=== PATIENT | female | born 1970 | race Caucasian/White ===

== ENCOUNTER 2020-08-21 06:20 | Emergency (ER) | payer OTHER, MEDICARE ==
[~2020-08-21] VITALS: Ht 144.8 cm; Wt 45.4 kg
[2020-08-21 06:50] VITALS: BP 133/87
[2020-08-21] MEDS ORDERED: MOBIC7.5 MG PO (10:22)
[2020-08-21] MEDS ORDERED: TOPAMAX50 MG PO (10:22)
[2020-08-21] MEDS ORDERED: KEPPRA XR500 MG PO (10:23)
[2020-08-21] MEDS ORDERED: LYRICA 75 MG CA75 MG PO (10:23)
[2020-08-21] MEDS ORDERED: FLEXERIL PO (10:24)
[2020-08-21] MEDS ORDERED: PROLIA60 MG/1 ML SUBQ (10:24)
[2020-08-21] MEDS ORDERED: LEVOTHYROXINE25 MC1 PO (10:24)
[2020-08-21] MEDS ORDERED: TRAZODONE HCL50 MG PO (10:25)
[2020-08-21] MEDS ORDERED: CEPHALEXIN500 MG PO (10:25)
[2020-08-21] MEDS ORDERED: ZOLOFT100 MG PO (10:25)
[2020-08-21] MEDS ORDERED: FLONASE 0.05%50 MCG NARES (10:26)
[2020-08-21] MEDS ORDERED: SINGULAIR 10 MG10 MG PO (10:26)
[2020-08-21] MEDS ORDERED: ABILIFY10 MG PO (10:26)
[2020-08-21] MEDS ORDERED: AZELASTINE205.5 MCG/ NARES (10:26)
[2020-08-21] MEDS ORDERED: QUESTRAN PACKET4 GM PO (10:27)
[2020-08-21] MEDS ORDERED: CARAFATE 1 GM TA1 GM PO (10:27)
[2020-08-21] MEDS ORDERED: DICYCLOMINE HCL20 MG PO (10:27)
[2020-08-21] MEDS ORDERED: POTASSIUM PO (10:28)
[2020-08-21] MEDS ORDERED: VITAMIN B6 (10:28)
[2020-08-21] MEDS ORDERED: MULTIVITAMIN (10:28)
[2020-08-21] MEDS ORDERED: CALCIUM500 MG PO (10:29)
[2020-08-21] MEDS ORDERED: VITAMIN D31250 MCG PO (10:29)
[2020-08-21] MEDS ORDERED: FOLIC ACID1 MG PO (10:30)
== END 2020-08-21 08:23 | disposition home or self-care (01) ==
LOC: M.ERS 06:20
DX: F10.129 Alcohol abuse with intoxication, unspecified (principal); Z88.2 Allergy status to sulfonamides; Y90.9 Presence of alcohol in blood, level not specified; V49.49XA Driver injured in collision with other motor vehicles in traffic accident, initial encounter; Y93.89 Activity, other specified; Y92.89 Other specified places as the place of occurrence of the external cause; Y99.8 Other external cause status

== ENCOUNTER 2020-08-21 08:24 | Emergency (ER) | payer MEDICARE ==
[~2020-08-21] VITALS: Ht 144.8 cm; Wt 45.4 kg
[2020-08-21 08:38] LABS: ABSOLUTE BASOPHILS 0.1 thou/uL (0.0-0.2); ABSOLUTE EOSINOPHILS 0.7 thou/uL (0.0-0.7); ABSOLUTE LYMPHOCYTES 3.3 thou/uL (0.8-5.3); ABSOLUTE MONOCYTES 0.3 thou/uL (0.0-1.2); ABSOLUTE NEUTROPHILS 5.3 thou/uL (1.6-8.1); BASOPHILS 0.6 %; EOSINOPHILS 7.1 %; HEMATOCRIT 41.1 % (37.0-47.0); HEMOGLOBIN 13.8 gm/dL (12.0-15.0); LYMPHOCYTES 34.1 %; MCH 31.8 pg (26.0-34.0); MCHC 33.6 g/dL (28.0-37.0); MCV 94.5 fL (80.0-100.0); MPV 8.5 fl. (7.2-11.1); NUCLEATED RBCS 0 /100WBC; PLATELET COUNT* 188 thou/uL (150-400); POLYS 55.2 %; RBC 4.35 mil/uL (4.20-5.00); RDW-CV 14.9 % (10.5-14.5); WBC 9.7 thou/uL (4.0-11.0)
[2020-08-21 08:47] LABS: CALCIUM 8.2 mg/dL (8.5-10.1); CREATININE 0.6 mg/dL (0.6-1.3); POTASSIUM 3.4 mmol/L (3.5-5.1)
[2020-08-21 08:51] LABS: ALBUMIN 3.3 g/dL (3.4-5.0); ALCOHOL 157 mg/dL (<10); TOTAL BILIRUBIN 0.2 mg/dL (<0.1-1.0); TOTAL PROTEIN 6.7 g/dL (6.4-8.2)
[2020-08-21 08:52] LABS: ACETAMINOPHEN < 2 ug/mL (10-30)
[2020-08-21 09:04] LABS: URINE BILIRUBIN NEGATIVE (Negative); URINE BLOOD NEGATIVE (Negative); URINE CLARITY CLEAR; URINE COLOR YELLOW; URINE GLUCOSE-RANDOM NEGATIVE (Negative); URINE KETONES NEGATIVE (Negative); URINE LEUKOCYTES-REFLEX NEGATIVE (Negative); URINE NITRITE-REFLEX NEGATIVE (Negative); URINE PROTEIN NEGATIVE (Negative); URINE UROBILINOGEN 0.2 E.U./dl (0.2-1.0)
[2020-08-21 09:11] LABS: AMP/METHAMP Negative (Negative); BARBITURATES Negative (Negative); BENZODIAZEPINES Negative (Negative); COCAINE Negative (Negative); METHADONE Negative (Negative); OPIATES Negative (Negative); PCP Negative (Negative); THC POSITIVE (Negative)
[2020-08-21] MEDS ORDERED: MOBIC7.5 MG PO (10:22)
[2020-08-21] MEDS ORDERED: TOPAMAX50 MG PO (10:22)
[2020-08-21] MEDS ORDERED: LYRICA 75 MG CA75 MG PO (10:23)
[2020-08-21] MEDS ORDERED: KEPPRA XR500 MG PO (10:23)
[2020-08-21] MEDS ORDERED: PROLIA60 MG/1 ML SUBQ (10:24)
[2020-08-21] MEDS ORDERED: FLEXERIL PO (10:24)
[2020-08-21] MEDS ORDERED: LEVOTHYROXINE25 MC1 PO (10:24)
[2020-08-21] MEDS ORDERED: ZOLOFT100 MG PO (10:25)
[2020-08-21] MEDS ORDERED: TRAZODONE HCL50 MG PO (10:25)
[2020-08-21] MEDS ORDERED: CEPHALEXIN500 MG PO (10:25)
[2020-08-21] MEDS ORDERED: SINGULAIR 10 MG10 MG PO (10:26)
[2020-08-21] MEDS ORDERED: FLONASE 0.05%50 MCG NARES (10:26)
[2020-08-21] MEDS ORDERED: ABILIFY10 MG PO (10:26)
[2020-08-21] MEDS ORDERED: AZELASTINE205.5 MCG/ NARES (10:26)
[2020-08-21] MEDS ORDERED: QUESTRAN PACKET4 GM PO (10:27)
[2020-08-21] MEDS ORDERED: CARAFATE 1 GM TA1 GM PO (10:27)
[2020-08-21] MEDS ORDERED: DICYCLOMINE HCL20 MG PO (10:27)
[2020-08-21] MEDS ORDERED: POTASSIUM PO (10:28)
[2020-08-21] MEDS ORDERED: VITAMIN B6 (10:28)
[2020-08-21] MEDS ORDERED: MULTIVITAMIN (10:28)
[2020-08-21] MEDS ORDERED: CALCIUM500 MG PO (10:29)
[2020-08-21] MEDS ORDERED: VITAMIN D31250 MCG PO (10:29)
[2020-08-21] MEDS ORDERED: FOLIC ACID1 MG PO (10:30)
[2020-08-21 13:28] VITALS: BP 130/70
== END 2020-08-21 13:31 | disposition home or self-care (01) ==
LOC: M.ERS 08:24
PROVIDERS: Family Medicine
DX: F32.9 Major depressive disorder, single episode, unspecified (principal); Z20.822 Contact with and (suspected) exposure to COVID-19; F10.129 Alcohol abuse with intoxication, unspecified; Y90.6 Blood alcohol level of 120-199 mg/100 ml; Z88.2 Allergy status to sulfonamides; Z88.8 Allergy status to other drugs, medicaments and biological substances; Z79.899 Other long term (current) drug therapy; Z90.49 Acquired absence of other specified parts of digestive tract